=== PATIENT | male | born 1990 | race Caucasian/White ===

== ENCOUNTER 2017-05-15 12:18 | Observation (INO) | payer SELFPAY ==
[~2017-05-15] VITALS: Ht 172.7 cm; Wt 75.0 kg
[2017-05-15 12:59] LABS: BASOPHILS # (AUTO) 0.07 x10^3/uL (0-0.1); BASOPHILS % (AUTO) 1 % (0-1); EOSINOPHILS # (AUTO) 0.21 x10^3/uL (0-0.4); EOSINOPHILS % (AUTO) 3 % (1-7); LYMPHOCYTES # (AUTO) 2.24 x10^3/uL (1-3.4); LYMPHOCYTES % (AUTO) 26 % (22-44); MD NO; MEAN CORPUSCULAR HEMOGLOBIN 31.4 pg (27.5-34.5); MEAN CORPUSCULAR VOLUME 92.3 fL (81-97); MONOCYTES % (AUTO) 6 % (2-9); NEUTROPHILS # (AUTO) 5.62 x10^3/uL (1.8-6.8); NEUTROPHILS % (AUTO) 65 % (42-75); PLATELET COUNT 280 x10^3/uL (130-400); RED CELL DISTRIBUTION WIDTH 12.3 % (9.4-14.8)
[2017-05-15 13:22] LABS: ALANINE AMINOTRANSFERASE 40 U/L (12-78); ANION GAP 7 mmol/L (5-15); CALCIUM 8.6 mg/dL (8.5-10.1); CHLORIDE 104 mmol/L (98-107)
[2017-05-15 13:25] LABS: ACETAMINOPHEN < 2 mcg/mL (10-30); ALKALINE PHOSPHATASE 90 U/L (45-117); BILIRUBIN,TOTAL 1.2 mg/dL (0.2-1.0); CREATININE 0.84 mg/dL (0.7-1.3); SALICYLATE LEVEL < 1.7 mg/dL (2.8-20.0); TOTAL PROTEIN 7.4 g/dL (6.4-8.2)
[2017-05-15 16:32] LABS: CULTURE INDICATED? NO; MICROSCOPIC NOT IND
[2017-05-15 16:44] LABS: AMPHETAMINE SCREEN, URINE Positive (Negative); BARBITURATE SCREEN, URINE Negative (Negative); BENZODIAZEPINE SCREEN, URINE Negative (Negative); CANNABINOID SCREEN, URINE Positive (Negative); COCAINE SCREEN, URINE Negative (Negative); METHADONE SCREEN, URINE Negative (Negative); OPIATE SCREEN, URINE Negative (Negative)
[2017-05-15 22:29] VITALS: BP 117/74
[2017-05-15] MEDS ORDERED: ONDANSETRON ODT 4 MG PO PRN (22:30)
[2017-05-15] MEDS ORDERED: POLYETHYLENE GLYCOL 17 GM PACKET PO PRN (22:30)
[2017-05-15] MEDS ORDERED: LORazepam 1MG TABLET PO PRN (22:30)
[2017-05-15] MEDS ORDERED: BISACODYL 10 MG SUPP PR PRN (22:30)
[2017-05-16 08:10] VITALS: BP 104/65
[2017-05-16] MEDS: SENNA/DOCUSATE TABLET PO SCH (08:16)
[2017-05-16 19:19] VITALS: BP 114/68
[2017-05-17 08:13] VITALS: BP 121/76
[2017-05-17] MEDS: SENNA/DOCUSATE TABLET PO SCH (08:39)
[2017-05-17 20:01] VITALS: BP 125/71
[2017-05-17] MEDS: TRAZODONE 50MG TABLET PO PRN (22:07)
[2017-05-18 07:41] VITALS: BP 104/65
[2017-05-18] MEDS: SENNA/DOCUSATE TABLET PO SCH (09:00)
[2017-05-18 19:28] VITALS: BP 112/69
[2017-05-19 07:45] VITALS: BP 111/69
[2017-05-19] MEDS: SENNA/DOCUSATE TABLET PO SCH (08:34)
[2017-05-19 19:24] VITALS: BP 103/63
[2017-05-19] MEDS: TRAZODONE 50MG TABLET PO PRN (21:40)
[2017-05-20 08:00] VITALS: BP 102/68
[2017-05-20] MEDS: SENNA/DOCUSATE TABLET PO SCH (09:56)
== END 2017-05-20 17:18 | disposition home or self-care (01) ==
LOC: ED 12:59 → EDIP 16:59 → 2N 22:35
PROVIDERS: ADMIT Internal Medicine; ATTEND Internal Medicine
DX: R45.851 Suicidal ideations (principal); F41.9 Anxiety disorder, unspecified; F15.10 Other stimulant abuse, uncomplicated; F12.10 Cannabis abuse, uncomplicated; R17 Unspecified jaundice; F33.2 Major depressive disorder, recurrent severe without psychotic features; F19.94 Other psychoactive substance use, unspecified with psychoactive substance-induced mood disorder; F17.210 Nicotine dependence, cigarettes, uncomplicated
CPT/HCPCS: 36415; 80053; 80307; 80329; 81003; 85025; 99285; G0378; G0480